=== PATIENT | male | born 1950 | race Asian ===

== ENCOUNTER 2017-04-23 11:25 | Emergency (ER) | payer MEDICAID, MEDICARE ==
[~2017-04-23] VITALS: Ht 157.5 cm; Wt 68.0 kg
[~2017-04-23 11:25] MED LIST: AMLO5TAB4 PO; ASPI81TA3 PO; ATOR20TA38 PO; CALC200T3 PO; LEVO500T10 PO; METF500T4 PO; METO25TA7 PO; PANT40TA4 PO; SITA50TA2 PO; SUCR1TAB56 PO
[2017-04-23 11:28] VITALS: Ht 157.5 cm; Wt 68.0 kg
[2017-04-23] MEDS ORDERED: DIPHTH/TET/ACEL PERTUSS (ADULT) 0.5 ML VIAL IM* ONE (12:00)
[2017-04-23] MEDS ORDERED: AMOX1TAB10 PO (12:10)
--- NOTE | 2017-04-23 12:13 | ERD ---
ER Documentation Chief Complaint Date/Time DATE: 04/23/17 TIME: 12:11 Chief Complaint RIGHT LEG DOG BITE LAST MONDAY HPI Patient is a 67-year-old male who presents to the ED with dog bite 2 days.. Patient states that the dog was a homeowners dog of his friend. States that the dog has been vaccinated. Patient has not had a recent tetanus vaccine. Denies pain. Denies fever or chills. Denies chest pain or cough or shortness of breath. No other complaints per ROS All systems reviewed and are negative except as per history of present illness. Medications Home Meds Active Scripts Amoxicillin/Potassium Clav (Amox-Clav 875-125 mg Tablet) 875-125 mg Tab, 1 TAB PO BID for 7 Days, #14 TAB Prov:MARYAM JONES PA-C 04/23/17 Sucralfate* (Carafate*) 1 Gm Tab, 1 GM PO AC MEALS AND BEDTIME for 90 Days, TAB 3 Refills Prov:GIA MARIN MD 02/12/15 Pantoprazole (Protonix) 40 Mg Tabec, 40 MG PO BID@06,18 for 90 Days, 3 Refills Prov:GIA MARIN MD 02/12/15 Calcium Carbonate (Tums) 500 Mg Chew, 500 MG PO PC MEALS for 90 Days, TAB.CHEW 3 Refills Prov:GIA MARIN MD 02/12/15 Metoprolol Succinate* (Toprol XL*) 25 Mg Tabsr, 25 MG PO DAILY, #90 3 Refills Prov:GIA MARIN MD 02/12/15 Levofloxacin* (Levofloxacin*) 500 Mg Tablet, 500 MG PO DAILY, #7 TAB Prov:GIA MARIN MD 02/12/15 Sitagliptin* (Januvia*) 50 Mg Tab, 25 MG PO DAILY, #90 3 Refills Prov:GIA MARIN MD 02/12/15 Atorvastatin Calcium* (Atorvastatin Calcium*) 20 Mg Tab, 40 MG PO HS, #90 3 Refills Prov:GIA MARIN MD 02/12/15 Reported Medications Aspirin* (Aspirin* Chew) 81 Mg Tab.chew, 81 MG PO DAILY, TAB.CHEW 02/05/15 Allergies Allergies: Coded Allergies: No Known Allergy (Unverified , 04/23/17) PMhx/Soc History of Surgery: Yes (laparotomy for perforated peptic ulder) Anesthesia Reaction: No Hx Neurological Disorder: No Hx Respiratory Disorders: No Hx Cardiac Disorders: No Hx Psychiatric Problems: No Hx Miscellaneous Medical Probl: Yes (DM, HTN, hyperlipidemia) Hx Alcohol Use: No Hx Substance Use: No Hx Tobacco Use: No FmHx Family History: No coronary disease, No diabetes, No other Physical Exam Vitals Vital Signs Date Time Temp Pulse Resp B/P Pulse Ox O2 Delivery O2 Flow Rate FiO2 04/23/17 11:28 98.1 78 20 167/80 99 Physical Exam GENERAL: Well-developed, well-nourished male. Appears in no acute distress. HEAD: Normocephalic, atraumatic. EYES: Pupils are equally reactive bilaterally. EOMs grossly intact. No conjunctival erythema. ENT: Moist mucous membranes. No uvula deviation. No kissing tonsils. No exudates. NECK: Supple. No lymphadenopathy or thyromegaly. No meningismus. negative kernig. negative brudinski. LUNG: Clear to auscultation bilaterally. No rhonchi, wheezing, rales or coarse breath sounds. HEART: Regular rate and rhythm. No murmurs, rubs or gallops. Extremities: Equal pulses bilaterally. No peripheral clubbing, cyanosis or edema. No unilateral leg swelling. NEUROLOGIC: Alert and oriented. Moving all four extremities. 5/5 strength in all extremities. Normal speech. Steady gait. SKIN: Normal color. Warm and dry.3 cm erythematous area of bite on right lower leg. No signs of infection. No drainage. No swelling. Capillary refill < 2 seconds Results 24 hrs Current Medications Medications (Trade) Dose Ordered Sig/Silverio Route PRN Reason Start Time Stop Time Status Last Admin Dose Admin Diphtheria/ Tetanus/Acell Pertussis (Adacel) 0.5 ml ONCE ONCE IM* 04/23/17 12:00 04/23/17 12:01 DC 04/23/17 11:49 Procedures/MDM ER COURSE: I kept the patient and/or family informed of laboratory and diagnostic imaging results throughout the emergency room course. MEDICAL DECISION MAKING: This is a 67-year-old male who presents with dog bite 2 days. Vital signs were reviewed. Patient is afebrile. Patient is not hypoxic. Patient is not toxic or ill appearing. Patient has a healing dog bite. Patient was given a tetanus vaccine here in the ED. Tolerated well with no adverse reaction. Low suspicion for necrotizing fasciitis, SJS, toxic epidermal necrolysis, Kawasaki, erythema multiforme, gangrene, scarlet fever, meningococcemia, sepsis, anaphylaxis, sepsis, deep space infection, or foreign body. DISCHARGE: At this time, patient is stable for discharge and outpatient management with no new complaints during the ER course. Patient was sent home with Augmentin. Patient will be discharged home with instructions to recheck for new or worsening symptoms such as fever, nausea, weakness, LOC and to follow up with primary care in the next 1-2 days. Patient was advised to return to the ER for any new or worsening symptoms. Plan was discussed and patient and/or family understands and agrees. Home instructions were given. Departure Diagnosis: Primary Impression: Dog bite Encounter type: initial encounter Qualified Code: W54.0XXA - Dog bite, initial encounter Condition: Stable Patient Instructions: Dog Bite Additional Instructions: Call your primary care doctor TOMORROW for an appointment during the next 1-2 days.See the doctor sooner or return here if your condition worsens before your appointment time. MARYAM JONES PA-C Apr 23, 2017 12:13
== END 2017-04-23 12:58 | disposition home or self-care (01) ==
LOC: FTE 11:25
DX: S81.851A Open bite, right lower leg, initial encounter (principal); E11.9 Type 2 diabetes mellitus without complications; I10 Essential (primary) hypertension; W54.0XXA Bitten by dog, initial encounter; Y92.9 Unspecified place or not applicable; Z23 Encounter for immunization; Z79.82 Long term (current) use of aspirin; Z79.84 Long term (current) use of oral hypoglycemic drugs
CPT/HCPCS: 90471; 90715